=== PATIENT | male | born 1995 | race Caucasian/White ===

== ENCOUNTER 2018-05-22 16:33 | Emergency (ER) | payer BC ==
[2018-05-22] MEDS ORDERED: fentaNYL 100 MCG/2 ML INJ IVP ONE (16:58)
[2018-05-22] MEDS ORDERED: NS 1,000 ML IV ONE (16:58)
--- NOTE | 2018-05-22 16:58 | EDPHY ---
H & P Stated Complaint: wound on tailbone Time Seen by Provider: 05/22/18 16:49 HPI/ROS: CHIEF COMPLAINT: Pilonidal cyst HISTORY OF PRESENT ILLNESS: Patient is a 22-year-old man comes to the emergency department complaining of pain in his lower tailbone/gluteal cleft region. It is been increasingly painful over the last 5 days. No fevers. He has not noticed any drainage. He has never had 1 of these before. It hurts worse when he sits on it. No diarrhea. No urinary symptoms. Severity: Moderate Modifying factors: Sitting REVIEW OF SYSTEMS: Constitutional: denies: chills, fever, recent illness, recent injury EENTM: denies: blurred vision, double vision, nose congestion Respiratory: denies: cough, shortness of breath Cardiac: denies: chest pain, irregular heart rate, lightheadedness, palpitations Gastrointestinal/Abdominal: denies: abdominal pain, diarrhea, nausea, vomiting, blood streaked stools Genitourinary: denies: dysuria, frequency, hematuria, pain Musculoskeletal: denies: joint pain, muscle pain Skin: See HPI Neurological: denies: headache, numbness, paresthesia, tingling, dizziness, weakness Hematologic/Lymphatic: denies: blood clots, easy bleeding, easy bruising Immunologic/allergic: denies: HIV/AIDS, transplant EXAM: GENERAL: Well-appearing, well-nourished and in no acute distress. HEAD: Atraumatic, normocephalic. EYES: Pupils equal round and reactive to light, extraocular movements intact, sclera anicteric, conjunctiva are normal. ENT: TMs normal, nares patent, oropharynx clear without exudates. Moist mucous membranes. NECK: Normal range of motion, supple without lymphadenopathy or JVD. LUNGS: Breath sounds clear to auscultation bilaterally and equal. No wheezes rales or rhonchi. HEART: Regular rate and rhythm without murmurs, rubs or gallops. ABDOMEN: Soft, nontender, normoactive bowel sounds. No guarding, no rebound. No masses appreciated. BACK: No CVA tenderness, no spinal tenderness, step-offs or deformities EXTREMITIES: Normal range of motion, no pitting or edema. No clubbing or cyanosis. NEUROLOGICAL: Cranial nerves II through XII grossly intact. Normal speech, normal gait. 5/5 strength, normal movement in all extremities, normal sensation , normal reflexes PSYCH: Normal mood, normal affect. SKIN: Pilonidal cyst at gluteal cleft. A small amount of purulent drainage, minimal erythema, very tender Source: Patient Exam Limitations: No limitations - Personal History Current Tetanus/Diphtheria Vaccine: Yes Current Tetanus Diphtheria and Acellular Pertussis (TDAP): Yes - Medical/Surgical History Hx Asthma: No Hx Chronic Respiratory Disease: No Hx Diabetes: No Hx Cardiac Disease: No Hx Renal Disease: No Hx Cirrhosis: No Hx Alcoholism: No Hx HIV/AIDS: No Hx Splenectomy or Spleen Trauma: No Other PMH: L wrist surgery, - Family History Significant Family History: No pertinent family hx - Social History Smoking Status: Never smoked Alcohol Use: None Constitutional: Initial Vital Signs Temperature (C) 37.2 C 05/22/18 16:43 Heart Rate 103 H 05/22/18 16:43 Respiratory Rate 16 05/22/18 16:43 Blood Pressure 117/73 05/22/18 16:43 O2 Sat (%) 96 05/22/18 16:43 O2 Delivery Mode Room Air O2 (L/minute) 2 Allergies/Adverse Reactions: No Known Allergies Allergy (Unverified 05/22/18 16:43) Home Medications: Medication Instructions Recorded Hydrocodone/APAP 5/325 [Vickery 1 - 2 tab PO Q4H PRN #7 tab 05/22/18 5/325 (RX)] Vyvanse 05/22/18 Medical Decision Making Procedures: Procedure: Abscess drainage. The patient's abscess was located on the gluteus. I obtained verbal consent from the patient to drain the abscess who was informed about the possibility of bleeding and pain. The abscess was incised with 11 blade scalpel and 4 cc of purulent drainage was expressed. I irrigated the wound and placed some packing. The patient tolerated the procedure well. The procedure was performed by myself. ED Course/Re-evaluation: Patient tolerated the procedure well. We discussed continued care. It was packed and a told him to let it fall out. He will follow up with surgery for definitive repair. I do not feel that antibiotics would be necessary. I will give him a short prescription pain medication Differential Diagnosis: Partial list of the Differential diagnosis considered include but were not limited to; abscess, pilonidal cyst and although unlikely based on the history and physical exam, I also considered fistula, cellulitis. I discussed these differential diagnoses and the plan with the patient as well as the usual and expected course. The patient understands that the diagnosis is provisional and that in medicine we are not always correct and that further workup is often warranted. Usual and customary warnings were given. All of the patient's questions were answered. The patient was instructed to return to the emergency department should the symptoms at all worsen or return, otherwise to followup with the physician as we discussed. - Data Points Medications Given: Discontinued Medications Fentanyl (Sublimaze) 150 mcg IVP EDNOW ONE Stop: 05/22/18 16:59 Last Admin: 05/22/18 17:48 Dose: 150 mcg Sodium Chloride (Ns) 1,000 mls @ 0 mls/hr IV ONCE ONE; Wide Open PRN Reason: Protocol Stop: 05/22/18 16:59 Last Admin: 05/22/18 17:49 Dose: 1,000 mls Departure - Departure Disposition: Home, Routine, Self-Care Clinical Impression: Pilonidal cyst with abscess Condition: Good Instructions: Pilonidal Cyst (ED) Referrals: NONE *PRIMARY CARE P,. [Primary Care Provider] - As per Instructions Caleb Krishna MD [Medical Doctor] - As per Instructions Prescriptions: Hydrocodone/APAP 5/325 [Vickery 5/325 (RX)] 1 - 2 tab PO Q4H PRN #7 tab PRN Reason: Pain, Moderate
[2018-05-22 19:11] VITALS: BP 119/80
== END 2018-05-22 19:12 | disposition home or self-care (01) ==
PROC: 0H98XZZ Drainage of Buttock Skin, External Approach (ICD-10-PCS; principal; 2018-05-22)
DX: L05.01 Pilonidal cyst with abscess (principal)
CPT/HCPCS: J3010